=== PATIENT | male | born 1980 ===

== ENCOUNTER 2017-05-01 18:06 | Emergency (ER) | payer BC, OTHER ==
[2017-05-01] MEDS ORDERED: Tetan/Diph/Pertus SYR(Tdap)* 0.5 ML SYR(BOOSTRIX) use SYR IM ONE (19:08)
--- NOTE | 2017-05-01 19:19 | UC ---
Skin Complaint HPI - HPI Summary HPI Summary: Patient presents with finger laceration that occurred while slicing vegetables prior to arrival. He was having problems getting the bleeding to stop. He states he is no on blood thinner, and does not know when his last tetanus was. He states there has been a constant burning pain since he cut it. Denies any numbness or tingling. - History of Current Complaint Chief Complaint: UCLaceration Time Seen by Provider: 05/01/17 19:04 Stated Complaint: FINGER LACERATION Hx Obtained From: Patient Onset/Duration: Sudden Onset Skin Exposure Onset/Duration: Minutes Ago Timing: Constant Onset Severity: Mild Current Severity: Mild Location: Discrete, Hand (Right) - fourth distal finger tip Aggravating: Touch Alleviating: Other - elevation above head. Associated Signs & Symptoms: Positive: Negative Related History: Trauma Review of Systems Skin: Other - skin avulsion of fourth distal finger tip. All Other Systems Reviewed And Are Negative: Yes PMH/Surg Hx/FS Hx/Imm Hx Previously Healthy: Yes - Family History Known Family History: Positive: None - Social History Occupation: Employed Full-time Lives: Alone Physical Exam Triage Information Reviewed: Yes Appearance: Well-Appearing Vital Signs: Initial Vital Signs Temp 98.9 F 05/01/17 18:16 Pulse 71 05/01/17 18:16 Resp 18 05/01/17 18:16 BP 126/65 05/01/17 18:16 Pulse Ox 100 05/01/17 18:16 Vital Signs Reviewed: Yes Eye Exam: Normal ENT Exam: Normal Respiratory Exam: Normal Skin Exam: Other - skin avulsion of right distal fourth figner. no muscle, tendon or bone visualized. Course/Dx - Course Course Of Treatment: Patient presents with a skin avulsion of his right fourth distal finger tip. He remains neuo-vasc intact. Tetanus booser updated at today visit. Wound was cleaned and dsd applied. Wound care instruction provided which included keep the finger clean and dry, change dressing daily. Monitor for signs and symtpoms of infection which include increased redness, pain, swelling , and discharge. If those symptom occur must seek immediate re-evaluation and treatment. - Differential Diagnoses - Skin Complaint Differential Diagnoses: Other - skin avulsion - Diagnoses Provider Diagnoses: skin avulsion Discharge - Discharge Plan Condition: Stable Disposition: HOME Patient Education Materials: Skin Avulsion (ED), Diphtheria/Acellular Pertussis /Tetanus Booster Vaccine (By injection) Referrals: Girish King MD [Primary Care Provider] - Images Hands: 1 - area of skin avulsion
== END 2017-05-01 19:48 | disposition home or self-care (01) ==
LOC: UCEAST 18:06
DX: S61.214A Laceration without foreign body of right ring finger without damage to nail, initial encounter (principal); W26.0XXA Contact with knife, initial encounter; Y93.G1 Activity, food preparation and clean up
CPT/HCPCS: 90715; 96372; 99202; G0463